=== PATIENT | female | born 1945 | race Caucasian/White ===

== ENCOUNTER 2019-06-24 15:12 | Emergency (ER) | payer MEDICARE, SELFPAY ==
[2019-06-24 15:31] VITALS: BP 152/78; PULSE 80; RESP 20; TEMP 37.3; O2SAT 96
--- NOTE | 2019-06-24 16:14 | ED.GENADULT ---
HPI - General Adult General Chief complaint: Upper Respiratory Infection Stated complaint: COUGH/CONGESTION/UNSEADY Time Seen by Provider: 06/24/19 16:15 Source: patient Mode of arrival: ambulatory Limitations: no limitations History of Present Illness HPI narrative: 74-year-old female patient presents to the [facility] with complaints of cold symptoms for the past 3 days. Patient states that she thinks she might of had the flu but states that her biggest complaint is that she has been having some dizziness. Patient states that she does have issues with her ears being clogged frequently and states when this happens she does tend to get some dizziness. Patient states she has been taking DayQuil and NyQuil for her symptoms. Patient also complains of chest congestion with cough but denies any chest pain or shortness of breath. Related Data Home Medications Medication Instructions Recorded Confirmed amlodipine 5 mg tablet 5 mg PO DAILY 04/01/19 06/24/19 aspirin 81 mg tablet,delayed 81 mg PO DAILY 04/01/19 06/24/19 release calcium carbonate 600 mg(1,500 1 tablet PO DAILY 04/01/19 06/24/19 mg)-vitamin D3 800 unit chewable tablet cholecalciferol (vitamin D3) 25 2,000 unit PO DAILY cap 04/01/19 06/24/19 mcg (1,000 unit) capsule omeprazole 20 mg capsule,delayed 20 mg PO .AC cap 04/01/19 06/24/19 release rosuvastatin 5 mg tablet 5 mg PO DAILY 04/01/19 06/24/19 [id number]-[id number] cap PO 06/24/19 [Vicks DayQuil-NyQuil] Allergies Allergy/AdvReac Type Severity Reaction Status Date / Time atorvastatin Allergy Unknown myalgias Verified 06/24/19 15:41 simvastatin Allergy Unknown myalgias Verified 06/24/19 15:41 Review of Systems Review of Systems: Narrative: CONSTITUTIONAL: Denies fever, positive body aches and chills, denies sweats. EYES: Denies visual changes, redness, or discharge. ENT: Positive rhinorrhea, congestion, denies sore throat, or otalgia. CARDIOVASCULAR: Denies chest pain, palpitations, or edema. RESPIRATORY: Positive cough or dyspnea. GASTROINTESTINAL: Denies abdominal pain, nausea, vomiting, or diarrhea. GENITOURINARY: Denies dysuria or hematuria. SKIN: Denies rash or itching. MUSCULOSKELETAL: Denies back pain, joint pain, or myalgia. NEUROLOGIC: Denies headache, numbness, or weakness. Positive dizziness PSYCHIATRIC: Denies anxiety or depression. ON LICENSE OF [facility] Past Medical History Medical History Anal wart (~2016) Condylomata yolanda of perianal skin Encounter for hepatitis C screening test for low risk patient (~03/01/17) History of mammogram (~02/28/17) Surgical History Surgical History History of cataract extraction (~03/14/16) History of colonoscopy (~2013) Family History Family History Father Family history of lung cancer Family history of elevated blood lipids Mother Family history of primary malignant neoplasm of liver Grandparent Diabetes mellitus Acute myocardial infarction Family history of malignant neoplasm of breast Family history of coronary artery disease Other Family history of cardiovascular disease Social History Social History Smoking status: Current every day smoker Alcohol intake: current Comments At the time of my signature I agree with nursing past medical history, surgical, social, and family history. There is no relevant family history pertinent to the presenting complaint. Exam Narrative: Exam Narrative: GENERAL: Well-appearing, well-nourished, and in no acute distress. HEAD: Normocephalic, atraumatic. No tenderness noted to frontal maxillary sinuses on palpation. EYES: PERRLA and EOMI. ENT: Nares with erythema and edema noted bilaterally, no rhinorrhea or epistaxis. Mucous membranes moist. Posterior pharynx with no erythem
--- NOTE | 2019-06-24 16:33 | PC.NURSE ---
Bilateral ear irrigation and use of lighted currette by Yanet Ruiz BENEFITS MANAGER with good results and pt felt much better
== END 2019-06-24 16:40 | disposition home or self-care (01) ==
PROVIDERS: Emergency Provider Nurse Practitioner Family; PCP Family Medicine
DX: H61.23 Impacted cerumen, bilateral (principal); H93.8X3 Other specified disorders of ear, bilateral; F17.200 Nicotine dependence, unspecified, uncomplicated
CPT/HCPCS: 69210; 99213; A9270; G0463

== ENCOUNTER 2020-04-26 14:25 | Outpatient (CLI) | payer MEDICARE, SELFPAY ==
--- NOTE | ~2020-04-26 | MM_ITS ---
EXAMINATION: MM screening [facility] BI w beth HISTORY: Screening mammogram TECHNIQUE: Craniocaudal and mediolateral oblique 3-D tomosynthesis images were obtained and synthetic 2-D images were generated. CAD analysis was submitted and interpreted. COMPARISON: 04/11/2019, 04/02/2018, 02/28/2017 BREAST PARENCHYMAL COMPOSITION: The breasts are almost entirely fatty. FINDINGS: Scattered benign-appearing calcifications are present. There is no evidence of suspicious m ass, calcification, or architectural distortion to suggest malignancy in either breast. There has bee n no suspicious interval change. IMPRESSION: 1. No mammographic evidence of malignancy. 2. Recommend routine screening mammography in one year. BI-RADS Category 2: Benign finding(s). Reviewed, dictated and finalized at location A. COACH
== END 2020-04-26 14:26 | disposition home or self-care (01) ==
PROVIDERS: PCP Family Medicine; Visit Provider Family Medicine
DX: Z12.31 Encounter for screening mammogram for malignant neoplasm of breast (principal)
CPT/HCPCS: 77063; 77067

== ENCOUNTER 2021-02-09 00:38 | Day surgery (SDC) | payer MEDICARE, SELFPAY ==
[2021-01-27 12:37] VITALS: BMI 32.7
[2021-02-09 08:09] VITALS: BP 152/107; PULSE 79; RESP 18; TEMP 36.2; O2SAT 98; BMI 31.8
[2021-02-09] MEDS: LACTATED RINGERS 1,000 ML 150 ML IV CONT (08:20)
--- NOTE | 2021-02-09 08:24 | WPDGICN ---
Assessment and Plan Assessment and plan (1) Family history of colonic polyps: Code(s): Z83.71 - Family history of colonic polyps Status: Acute Assessment and Plan: Patient has a family history of colon polyps for this reason. A attic surveillance colonoscopies have been performed. Plan is for neoplasia screening today. GI Consult Note Consult date/time: 02/09/21 08:24 HPI: Linnea Goins is a 76 year old female Presents for screening colonoscopy. Patient has a family history of colon polyps. Patient's last exam 2013 was unremarkable. Patient reports that her current weight appetite bowel movements are normal. She denies abdominal pain. She has had no bleeding. She presents today for surveillance neoplasia screening. Review of Systems Review of Systems: All systems reviewed & are unremarkable except as noted in HPI and below PMFSH Past Medical History Medical History (Updated 02/09/21 @ 08:25 by Fritz Peoples MD) Anal wart (~2016) Condylomata yolanda of perianal skin Encounter for hepatitis C screening test for low risk patient (~03/01/17) History of mammogram (~02/28/17) Surgical History Surgical History (Reviewed 12/20/20 @ 13:41 by Vanessa Vega [facility]) History of cataract extraction (~03/14/16) History of colonoscopy (~2013) Family History Family History (Reviewed 12/20/20 @ 13:41 by Vanessa Vega [facility]) Father Family history of lung cancer Family history of elevated blood lipids Mother Family history of primary malignant neoplasm of liver Grandparent Diabetes mellitus Acute myocardial infarction Family history of malignant neoplasm of breast Family history of coronary artery disease Other Family history of cardiovascular disease Social History Social History (Reviewed 12/20/20 @ 13:41 by Vanessa Vega [facility]) Smoking packs per day: 1.5 Smoking cigarettes per day: 30.0 Years smoked: 40 Smoking pack-years: 60.00 Smoking status: Current every day smoker Tobacco type: cigarettes Alcohol intake: current Drinks per week: 10 Living arrangements: with family Spiritual care concerns: No Meds Home Medications and Allergies Home Medications Medication Instructions Recorded Confirmed Type aspirin 81 mg tablet,delayed 81 mg PO DAILY 04/01/19 01/27/21 History release calcium carbonate 600 mg(1,500 1 tablet PO DAILY 04/01/19 01/27/21 History mg)-vitamin D3 800 unit chewable tablet cholecalciferol (vitamin D3) 25 2,000 unit PO DAILY cap 04/01/19 01/27/21 History mcg (1,000 unit) capsule meloxicam 15 mg tablet See Rx Instructions .ROUTE 11/22/20 01/27/21 Rx .COMPLEX #90 tablet omeprazole 20 mg capsule,delayed See Rx Instructions .ROUTE 11/22/20 01/27/21 Rx release .COMPLEX #90 cap amlodipine 5 mg tablet See Rx Instructions .ROUTE 12/13/20 01/27/21 Rx .COMPLEX #90 tablet rosuvastatin 5 mg tablet See Rx Instructions .ROUTE 12/13/20 01/27/21 Rx .COMPLEX #90 tablet Allergies Allergy/AdvReac Type Severity Reaction Status Date / Time atorvastatin Allergy Unknown myalgias Verified 02/09/21 08:08 simvastatin Allergy Unknown myalgias Verified 02/09/21 08:08 Vital Signs Vital Signs - 24 hr 02/09/21 08:09 Temperature 97.2 F L Pulse Rate 79 Respiratory Rate 18 Blood Pressure 152/107 H Pulse Oximetry 98 Exam Narrative: Physical exam reveals patient to be alert. Vital signs stable. HEENT exam is unremarkable. Patient is anicteric. Lungs are clear to auscultation and percussion. Heart is without murmur or extra sounds. Abdominal exam bowel sounds are present soft nontender with no organomegaly. Digital external rectal exam is normal.
--- NOTE | 2021-02-09 08:36 | WPDANESEPPF ---
Anes - Initial Pre Proc Eval Procedure: Operation Date: 02/09/21 09:00 Proposed Procedures p Screening Colonoscopy - Fritz Peoples MD Date/Time: 02/09/21 08:36 Surgeon: Fritz Peoples MD Pre Op Diagnosis: family hx of colon polyps Patient Data Age: 76 Gender: F Height: 1.68 m Weight: 89.7 kg Last Vital Signs Temp 97.2 F L 02/09/21 08:09 Pulse 79 02/09/21 08:09 Resp 18 02/09/21 08:09 BP 152/107 H 02/09/21 08:09 Pulse Ox 98 02/09/21 08:09 Allergies Allergy/AdvReac Type Severity Reaction Status Date / Time atorvastatin Allergy Unknown myalgias Verified 02/09/21 08:08 simvastatin Allergy Unknown myalgias Verified 02/09/21 08:08 Home Medications Medication Instructions Recorded Confirmed Type aspirin 81 mg tablet,delayed 81 mg PO DAILY 04/01/19 01/27/21 History release calcium carbonate 600 mg(1,500 1 tablet PO DAILY 04/01/19 01/27/21 History mg)-vitamin D3 800 unit chewable tablet cholecalciferol (vitamin D3) 25 2,000 unit PO DAILY cap 04/01/19 01/27/21 History mcg (1,000 unit) capsule meloxicam 15 mg tablet See Rx Instructions .ROUTE 11/22/20 01/27/21 Rx .COMPLEX #90 tablet omeprazole 20 mg capsule,delayed See Rx Instructions .ROUTE 11/22/20 01/27/21 Rx release .COMPLEX #90 cap amlodipine 5 mg tablet See Rx Instructions .ROUTE 12/13/20 01/27/21 Rx .COMPLEX #90 tablet rosuvastatin 5 mg tablet See Rx Instructions .ROUTE 12/13/20 01/27/21 Rx .COMPLEX #90 tablet Patient hx anesthesia problems: none Family hx anesthesia problems: none Results Review: All pre-operative results and documents have been reviewed as part of the pre-operative evaluation. [facility] Past Medical History Medical History (Updated 02/09/21 @ 08:25 by Fritz Peoples MD) Anal wart (~2016) Condylomata yolanda of perianal skin Encounter for hepatitis C screening test for low risk patient (~03/01/17) History of mammogram (~02/28/17) Surgical History Surgical History History of cataract extraction (~03/14/16) History of colonoscopy (~2013) Family History Family History Father Family history of lung cancer Family history of elevated blood lipids Mother Family history of primary malignant neoplasm of liver Grandparent Diabetes mellitus Acute myocardial infarction Family history of malignant neoplasm of breast Family history of coronary artery disease Other Family history of cardiovascular disease Social History Social History Smoking packs per day: 1.5 Smoking cigarettes per day: 30.0 Years smoked: 40 Smoking pack-years: 60.00 Smoking status: Current every day smoker Tobacco type: cigarettes Alcohol intake: current Drinks per week: 10 Living arrangements: with family Spiritual care concerns: No Anes - Eval Final PreProcedure Day of Procedure 02/09/21 08:36 Patient weight: obese Heart: regular rate and rhythm Lungs: clear to auscultation Airway: Mallampati scale class II Neurological: alert and oriented Last oral intake: >/= 8 hours ASA classification: III Emergent: no Anesthetic plan: proceed Anesthesia type and monitoring: general GIVS and standard monitoring Results Review: All pre-operative results and documents have been reviewed as part of the pre-operative evaluation. Informed Consent: The patient's anesthetic plan and its attendant risks and benefits were discussed with the patient/family/POA. Questions were solicited and answers provided to the satisfaction of the patient/family/POA.
[2021-02-09 09:13] VITALS: BP 129/76; PULSE 68; RESP 18; O2SAT 98
[2021-02-09 09:23] VITALS: BP 126/77; PULSE 69; RESP 15; O2SAT 96
[2021-02-09 09:33] VITALS: BP 137/85; PULSE 69; RESP 14; O2SAT 97
== END 2021-02-09 09:40 | disposition home or self-care (01) ==
PROVIDERS: PCP Family Medicine; Visit Provider Internal Medicine Gastroenterology
PROC: 0DJD8ZZ Inspection of Lower Intestinal Tract, Via Natural or Artificial Opening Endoscopic (ICD-10-PCS; CPT 45378; principal; 2021-02-09 09:00)
DX: Z12.11 Encounter for screening for malignant neoplasm of colon (principal); K64.8 Other hemorrhoids; K57.30 Diverticulosis of large intestine without perforation or abscess without bleeding; Z83.71 Family history of colonic polyps; F17.210 Nicotine dependence, cigarettes, uncomplicated
CPT/HCPCS: G0105; J2704; J7120

== ENCOUNTER 2021-05-18 13:57 | Outpatient (CLI) | payer MEDICARE, SELFPAY ==
--- NOTE | ~2021-05-18 | MM_ITS ---
EXAMINATION: MM screening [facility] BI w beth HISTORY: Screening mammogram TECHNIQUE: Craniocaudal and mediolateral oblique 3-D tomosynthesis images were obtained and synthetic 2-D images were generated. CAD analysis was submitted and interpreted. COMPARISON: 04/26/2020, 04/09/2019, 04/02/2018 BREAST PARENCHYMAL COMPOSITION: There are scattered areas of fibroglandular density. FINDINGS: Scattered benign-appearing calcifications are present. There is no evidence of suspicious m ass, calcification, or architectural distortion to suggest malignancy in either breast. There has bee n no suspicious interval change. IMPRESSION: 1. No mammographic evidence of malignancy. 2. Recommend routine screening mammography in one year. BI-RADS Category 2: Benign finding(s). Reviewed, dictated and finalized at location A. [facility]
== END 2021-05-18 13:58 | disposition home or self-care (01) ==
LOC: ANHIMG 13:58
PROVIDERS: PCP Family Medicine; Visit Provider Family Medicine
DX: Z12.31 Encounter for screening mammogram for malignant neoplasm of breast (principal)
CPT/HCPCS: 77063; 77067

== ENCOUNTER 2022-03-07 13:54 | Outpatient (CLI) | payer MEDICARE, SELFPAY ==
--- NOTE | ~2022-03-07 | DEXA_ITS ---
Bone Density Report Name: WILVER CARREON Age: 77 Sex: Female Ethnicity: White Date of : 1945 Indication: postmenopausal; screening for osteoporosis; height loss; rheumatoid arthritis; Referring Provider: KEVIN BAEZA Study: Bone densitometry was performed. Exam Date: March 07, 2022 Accession number: [id number] Bone Density: Region BMD T-score Z-score Classification AP Spine(L1-L4) 1.210 1.5 3.9 Normal Femoral Neck (Left) 0.928 0.7 2.8 Normal Total Hip (Left) 1.014 0.6 2.4 Normal Femoral Neck (Right) 0.901 0.5 2.6 Normal Total Hip (Right) 1.025 0.7 2.5 Normal Total Hip Mean 1.019 0.7 2.5 Normal World Health Organization criteria for BMD impression classify patients as: Normal (T-score at or above -1.0), Osteopenia (T-score between -1.0 and -2.5), or Osteoporosis (T-score at or below -2.5). 10-year Fracture Risk: FRAX not reported because: All T-scores for Spine Total, Hip Total, Femoral Neck at or above -1.0 Clinical Information Provided by Patient: Smokes Has rheumatoid arthritis Has used the following medications: Vitamin D, Calcium Patient maximum height was 66.5 Menopause Age: 47 No regular weight bearing exercise Drinks caffeinated beverages Onset of menses at age 14 Number of children 2 Impression: The patient has normal bone mass. The patient has risk factors, including: smoking. Discussion: LOW RISK OF FRACTURE; BONE DENSITY IS WELL ABOVE THE MINIMUM DESIRABLE LEVEL AND ABOVE AVERAGE FOR AGE AND SEX AT ALL SKELETAL SITES TESTED. This person's bone density is above expected limits for age and sex. This is rarely clinically significant, but should be pursued if there are significant musculoskeletal complaints. The patient should follow a healthful lifestyle (good nutrition with adequate calcium and vitamin D, and appropriate weight-bearing exercise). Follow-Up: Consider repeating this study in 5 years or sooner if there is some new clinical indication. Reported by: [facility] on 03/07/2022 2:25:00 PM. Reviewed, dictated and finalized at location A. NAKUL
== END 2022-03-07 13:55 | disposition home or self-care (01) ==
PROVIDERS: PCP Family Medicine; Visit Provider Family Medicine
DX: Z78.0 Asymptomatic menopausal state (principal)
CPT/HCPCS: 77080

== ENCOUNTER 2022-07-03 18:48 | Emergency (ER) | payer MEDICARE, SELFPAY ==
--- NOTE | ~2022-07-03 | XR_ITS ---
EXAMINATION: XR knee RT 3V DATE: 07/03/2022 21:29 INDICATION: Right knee pain and swelling. TECHNIQUE: 3 views of right knee were obtained. COMPARISON: Right knee radiographs 01/17/2017 FINDINGS: Bone alignment is normal. No fracture. There is moderate osteoarthritis of medial compartme nt and mild osteoarthritis of lateral and patellofemoral compartments. No knee joint effusion. IMPRESSION: 1. Moderate right knee osteoarthritis. Reviewed, dictated and finalized at location A. 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
[2022-07-03 19:34] VITALS: BP 125/67; PULSE 82; RESP 16; TEMP 37.1; O2SAT 95
--- NOTE | 2022-07-03 23:59 | ED.GENADULT ---
HPI - General Adult General Chief complaint: Extremity Injury, Lower Stated complaint: right knee pain Time Seen by Provider: 07/03/22 23:50 History of Present Illness HPI narrative: Patient is a 77-year-old female who presents the emergency department with chief complaint of right knee pain. Patient reports that many years ago she injured her right knee and reports over the last week she has been having pain worse with ambulation reports it is worse whenever she tries to extend her leg. Patient reports no new trauma reports no redness reports that she thinks it may be a little swollen. Patient reports that she has not seen orthopedics about it and has had an MRI several years ago. Related Data Home Medications Medication Instructions Recorded Confirmed aspirin 81 mg tablet,delayed 81 mg PO DAILY 04/01/19 12/20/21 release calcium carbonate 600 mg-vitamin 1 tablet PO DAILY 04/01/19 12/20/21 D3 20 mcg (800 unit) chewable tablet (Caltrate 600 plus D) cholecalciferol (vitamin D3) 25 2,000 unit PO DAILY 04/01/19 12/20/21 mcg (1,000 unit) capsule Allergies Allergy/AdvReac Type Severity Reaction Status Date / Time atorvastatin Allergy Unknown myalgias Verified 04/25/22 13:02 simvastatin Allergy Unknown myalgias Verified 04/25/22 13:02 Review of Systems Review of Systems: A 10 system review of systems was completed on the patient and is negative except for what is stated in the HPI. Nursing and ancillary documentation was reviewed. [facility] Past Medical History Medical History (Updated 07/04/22 @ 00:02 by Atilio Garcia MD) Anal wart (~2016) Condylomata yolanda of perianal skin Encounter for hepatitis C screening test for low risk patient (~03/01/17) History of mammogram (~02/28/17) Surgical History Surgical History History of cataract extraction (~03/14/16) History of colonoscopy (~2013) Family History Family History Father Family history of lung cancer Family history of elevated blood lipids Mother Family history of primary malignant neoplasm of liver Grandparent Diabetes mellitus Acute myocardial infarction Family history of malignant neoplasm of breast Family history of coronary artery disease Other Family history of cardiovascular disease Social History Social History Smoking packs per day: 1.5 Smoking cigarettes per day: 30.0 Years smoked: 40 Smoking pack-years: 60.00 Smoking status: Current every day smoker Tobacco type: cigarettes Alcohol intake: current Drinks per week: 10 Lack of Transportation: No Lack of Food: Sometimes True Current Housing: I Have Housing Concerned About Future Housing: No Difficulty Paying Gas/Electric Bills: No Difficulty Paying for Meds: No Currently Unemployed: No Education: High School Diploma/GED Difficulty w/ Childcare or Family Care: No Living arrangements: with family Spiritual care concerns: No Exam Narrative: GENERAL: Well-appearing, well-nourished, and in no acute distress. HEAD: Normocephalic, atraumatic. EYES: PERRLA and EOMI. ENT: Nares clear, no rhinorrhea or epistaxis. Mucous membranes moist. NECK: Supple. CHEST: Clear to auscultation. No respiratory distress. HEART: Regular rate and rhythm. No murmur heard. Normal peripheral pulses. ABDOMEN: Soft, nontender, nondistended, normal active bowel sounds. EXTREMITIES: Normal range of motion of all extremities except for right lower extremity. There is limited range of motion of the right knee patient has difficulty extending. There is tenderness with range of motion and lateral movement. There is no appreciable effusion no erythema no fluctuance.. No edema. SKIN: Warm, dry, no rash. NEURO: No focal deficits. Alert and oriented x3. PSYCH: Normal mood and a
[2022-07-04] MEDS: DICLOFENAC SOD 25 MG TABLET.EC 50 MG PO (00:20)
== END 2022-07-04 00:24 | disposition home or self-care (01) ==
PROVIDERS: Emergency Provider Emergency Medicine; PCP Family Medicine
DX: M23.91 Unspecified internal derangement of right knee (principal); F17.210 Nicotine dependence, cigarettes, uncomplicated; Z79.82 Long term (current) use of aspirin; Z98.49 Cataract extraction status, unspecified eye
CPT/HCPCS: 73562; 99283; A9270

== ENCOUNTER 2022-08-31 14:45 | Outpatient (CLI) | payer MEDICARE, SELFPAY ==
--- NOTE | ~2022-08-31 | MM_ITS ---
EXAMINATION: MM screening [facility] BI w beth HISTORY: Screening mammogram TECHNIQUE: Craniocaudal and mediolateral oblique 3-D tomosynthesis images were obtained and synthetic 2-D images were generated. CAD analysis was submitted and interpreted. COMPARISON: 05/18/2021, 04/26/2020, 04/09/2019 BREAST PARENCHYMAL COMPOSITION: There are scattered areas of fibroglandular density. FINDINGS: Scattered benign-appearing calcifications are present. No suspicious mass, calcification, o r architectural distortion are identified in either breast to suggest malignancy. There has been no s uspicious interval change. IMPRESSION: 1. No mammographic evidence of malignancy. 2. Recommend routine screening mammography in one year. BI-RADS Category 2: Benign finding(s). Reviewed, dictated and finalized at location A.
== END 2022-08-31 14:46 | disposition home or self-care (01) ==
PROVIDERS: PCP Family Medicine; Visit Provider Family Medicine
DX: Z12.31 Encounter for screening mammogram for malignant neoplasm of breast (principal)
CPT/HCPCS: 77063; 77067

== ENCOUNTER 2022-11-29 13:05 | Emergency (ER) | payer MEDICARE, SELFPAY ==
--- NOTE | 2022-11-29 13:09 | ED.EYEPROB ---
HPI - Eye Problem General Chief complaint: Skin/Abscess/Foreign Body Stated complaint: EYE SWELLING/BUMPS Time Seen by Provider: 11/29/22 13:09 Source: patient and RN notes reviewed History of Present Illness HPI Narrative: Patient is a 77-year-old female who presents to urgent care with complaints of bumps under the skin and irritation of the left eye. Patient states that it started over the weekend with a bump under the left eye causing itchiness and some redness/swelling. Patient states she now has a bump under the skin above her upper lip, the left cheek and swollen left lymph node. Patient states that she has also had a sore throat. Denies any history of skin infection. Denies any fever, nausea or vomiting. Patient took Benadryl for her symptoms. No other acute complaints. No acute distress noted. Patient aware of the plan of care. Some parts of this dictation were generated by voice recognition software and may contain typographical and/or grammatical inaccuracies. Related Data Home Medications Medication Instructions Recorded Confirmed aspirin 81 mg tablet,delayed 81 mg PO DAILY 04/01/19 11/29/22 release calcium carbonate 600 mg-vitamin 1 tablet PO DAILY 04/01/19 11/29/22 D3 20 mcg (800 unit) chewable tablet (Caltrate 600 plus D) cholecalciferol (vitamin D3) 25 2,000 unit PO DAILY 04/01/19 11/29/22 mcg (1,000 unit) capsule Allergies Allergy/AdvReac Type Severity Reaction Status Date / Time atorvastatin Allergy Unknown myalgias Verified 11/29/22 13:12 simvastatin Allergy Unknown myalgias Verified 11/29/22 13:12 Review of Systems Review of Systems: CONSTITUTIONAL: Denies fever, chills, or sweats. EYES: Denies visual changes, redness, or discharge. ENT: Denies rhinorrhea, congestion, sore throat, or otalgia. Reports of left lymph node swelling CARDIOVASCULAR: Denies chest pain, palpitations, or edema. RESPIRATORY: Denies cough or dyspnea. GASTROINTESTINAL: Denies abdominal pain, nausea, vomiting, or diarrhea. GENITOURINARY: Denies dysuria or hematuria. SKIN: Reports of bones under the skin, over the upper lip, left cheek and below the left eye MUSCULOSKELETAL: Denies back pain, joint pain, or myalgia. NEUROLOGIC: Denies headache, numbness, or weakness. All other systems reviewed are negative, except as documented in HPI. [facility] Past Medical History Medical History (Updated 11/29/22 @ 13:31 by CLARI Cunningham) Anal wart (~2016) Condylomata yolanda of perianal skin Effusion of knee joint Encounter for hepatitis C screening test for low risk patient (~03/01/17) History of mammogram (~02/28/17) Right knee DJD Right knee pain Surgical History Surgical History History of cataract extraction (~03/14/16) History of colonoscopy (~2013) Family History Family History Father Family history of lung cancer Family history of elevated blood lipids Mother Family history of primary malignant neoplasm of liver Grandparent Diabetes mellitus Acute myocardial infarction Family history of malignant neoplasm of breast Family history of coronary artery disease Other Family history of cardiovascular disease Social History Social History (Updated 07/11/22 @ 11:14 by Elena Chris) Social History: Caffeine-coffee daily Smoking packs per day: 1.5 Smoking cigarettes per day: 30.0 Years smoked: 40 Smoking pack-years: 60.00 Smoking status: Current every day smoker Tobacco type: cigarettes Alcohol intake: current Drinks per week: 2 Alcohol use details: wine Substance use: never Lack of Transportation: No Lack of Food: Sometimes True Current Housing: I Have Housing Concerned About Future Housing: No Difficulty Paying Gas/Electric Bills: No Difficulty Paying for Meds: No Currently Unemployed: No Education: High School Diploma/GED Difficulty w/ Childcare
[2022-11-29 13:15] VITALS: BP 151/78; PULSE 79; RESP 16; TEMP 36.6; O2SAT 98
== END 2022-11-29 13:34 | disposition home or self-care (01) ==
PROVIDERS: Emergency Provider Nurse Practitioner Family; PCP Family Medicine
DX: L03.211 Cellulitis of face (principal); F17.210 Nicotine dependence, cigarettes, uncomplicated; M17.11 Unilateral primary osteoarthritis, right knee; Z79.82 Long term (current) use of aspirin
CPT/HCPCS: 99213; G0463

== ENCOUNTER 2023-09-03 13:28 | Outpatient (CLI) | payer MEDICARE, SELFPAY ==
--- NOTE | ~2023-09-03 | CT_ITS ---
EXAMINATION:CT lung screening DATE: 09/03/2023 13:52 INDICATION: Personal history of nicotine dependence. Current smoker with 90 pack year history. TECHNIQUE: Computed tomography (CT) of the chest was performed without intravenous contrast. Automate d exposure control and iterative reconstruction technique were employed. The dose-length product (DLP ) was 163.94 mGy-cm. COMPARISON: None. FINDINGS: There is mild emphysema. There is peripheral septal thickening in the lungs associated with mild groundglass opacities. There are a few nodules in the lungs measuring up to 4 mm. Calcified pul monary nodules and calcified hilar and mediastinal lymph nodes are consistent with old granulomatous disease. No pleural effusion. The heart size is normal. There are coronary artery calcifications. No pericardial effusion. Aortic atherosclerosis is noted. There is mild thoracic spondylosis. IMPRESSION: 1. Lung-RADS category 2: Benign appearance or behavior. Continue annual screening with noncontrast lo w-dose chest CT in 12 months. Reviewed, dictated and finalized at location E. IMPRESSION: 1. Lung-RADS category 2: Benign appearance or behavior. Continue annual screeni ng with noncontrast low-dose chest CT in 12 months.
== END 2023-09-03 13:29 | disposition home or self-care (01) ==
PROVIDERS: PCP Family Medicine; Visit Provider Family Medicine
DX: Z12.2 Encounter for screening for malignant neoplasm of respiratory organs (principal); Z87.891 Personal history of nicotine dependence
CPT/HCPCS: 71271

== ENCOUNTER 2024-01-09 14:29 | Outpatient (CLI) | payer MEDICARE, SELFPAY ==
--- NOTE | 2024-01-09 14:33 | ECHO_ITS ---
Patient Info Name: Linnea Goins Age: 79 years : 1945 Gender: Female Ht: 66 in Wt: 192 lbs BSA: 2.04 m2 HR: 82 bpm BP: 151 / 97 mmHg Heart Rhythm: Sinus Rhythm Technical Quality: Fair Exam Date: 01/09/2024 2:42 PM Exam Location: Echo Lab Patient Status: Outpatient Admit Date: 01/09/2024 Staff Ordering Physician: Nhung Villavicencio DO E Commerce Specialist: Tayler Cedeno RDCS Attending Provider: Nhung Villavicencio DO Referring Physician: Saud [place]; Exam Type: CA echo dop color flow w con Study Info Indications R01.1 - Cardiac murmur, unspecified Complete two-dimensional, color flow and Doppler transthoracic echocardiogram is performed with contrast to opacify the left ventricle and to improve the deliniation of the left ventricle endocardial borders. Contrast/Agitated Saline Contrast/Ag. Saline: Definity Amount: 2.00 ml Administered By: Tayler Cedeno RDCS New IV Access: Right Site Condition: IV removed Summary 1. Technically somewhat challenging echo, definity contrast utilized to improve visualization. 2. Moderate concentric left ventricular hypertrophy with hyperdynamic systolic function. 3. Grade 1 diastolic noncompliance. 4. Sclerotic aortic valve with well maintained leaflet excursion. 5. Mitral annular calcification. 6. Dilated left atrium. Left Ventricle Left ventricular chamber dimension is normal. Left ventricular systolic function is hyperdynamic, estimated at >70%. There is moderate concentric increased left ventricular wall thickness. The left ventricular diastolic function is grade I diastolic dysfunction. Right Ventricle Right ventricular chamber dimension is normal. Left Atria Left atrial chamber dimension is moderately enlarged. Right Atria Right atrial chamber dimension is normal. Aortic Valve The aortic valve is trileaflet. There is moderate aortic valve sclerosis. There is no aortic valve stenosis. Pulmonic Valve The pulmonic valve is not well visualized. Mitral Valve The mitral valve has normal leaflets. The mitral valve annulus is moderately calcified. Tricuspid Valve The tricuspid valve leaflets are normal. Pericardium/Pleural The pericardium appears normal. Aorta The aortic root size at the sinus of Valsalva is normal. Left Ventricular Outflow Tract Name Value Normal LVOT 2D LVOT Diameter 1.97 cm LVOT Doppler LVOT Peak Gradient 6 mmHg LVOT Mean Gradient 4 mmHg LVOT VTI 24.89 cm LVOT VTI/AV VTI Ratio 0.73 LVOT Stroke Volume 75.91 ml LVOT CO 5.68 l/min LVOT CI 2.78 L/min/m2 Pulmonic Valve Name Value Normal RVOT Doppler RVOT Peak Gradient 3 mmHg PV Doppler
[2024-01-09] MEDS: PERFLUTREN LIPID MICROSPHERES 1.5 ML VIAL DILUTED TO 10 ML TOTAL VOLUME (15:00)
--- NOTE | 2024-01-09 15:54 | IVDEFINITY ---
Prior to administration of IV Definity the patient was educated on the risks and benefits of the imaging enhancing agent including potential adverse side effects. The patient verbalized understanding. Allergies were verified. No exclusion criteria were identified and at least one of the following inclusion criteria were met: 1) physician request, 2) patient technically difficult to image (per the [place] [employer]chocardi[employer] guidelines of two or more segments not discernable within the apical view), or 3) questionable left ventricular function. ?
== END 2024-01-09 14:30 | disposition home or self-care (01) ==
LOC: ANHCARD 14:32
PROVIDERS: PCP Family Medicine; Visit Provider Family Medicine
DX: R01.1 Cardiac murmur, unspecified (principal); I51.89 Other ill-defined heart diseases; I34.81 Nonrheumatic mitral (valve) annulus calcification
CPT/HCPCS: C8929; Q9957

== ENCOUNTER 2024-08-18 14:53 | Outpatient (CLI) | payer MEDICARE, SELFPAY ==
--- NOTE | ~2024-08-18 | XR_ITS ---
Left Hand Technique: PA and lateral views were obtained. Clinical History: Swelling Findings: No acute fracture or dislocation is seen. Osseous alignment is anatomic. There is severe de generative change of the first CMC joint. There are moderate to advanced degenerative changes through out the interphalangeal joints of the fingers otherwise.. Soft tissues are unremarkable. Impression: Polyarticular osteoarthritis, as detailed above. Reviewed, dictated and finalized at location M. Impression: Polyarticular osteoarthritis, as detailed above.
== END 2024-08-18 14:54 | disposition home or self-care (01) ==
LOC: GOSHIMG 14:54
PROVIDERS: PCP Family Medicine; Visit Provider Nurse Practitioner
DX: R22.32 Localized swelling, mass and lump, left upper limb (principal); M19.042 Primary osteoarthritis, left hand
CPT/HCPCS: 73120

== ENCOUNTER 2024-09-03 14:46 | Outpatient (CLI) | payer MEDICARE, SELFPAY ==
--- NOTE | ~2024-09-03 | CT_ITS ---
CLINICAL INDICATION: Personal history of nicotine dependence COMPARISON: 09/03/2023. TECHNIQUE: Multiple contiguous axial images of the chest was performed without the administration of intravenous contrast. This CT examination was performed utilizing dose reduction techniques. DLP: 109 mGy-cm FINDINGS/OBSERVATIONS: LUN mm nodule within the left upper lobe (axial series, image 48), increased from 4.4 mm on the previou s study. Calcified nodules within the right hemithorax, consistent with prior granulomatous disease. HEART: The heart is of normal size, without pericardial effusion. MEDIASTINUM: No pathologically enlarged or morphologically suspicious lymph nodes are identified within the medias tinum, bilateral axilla, within the soft tissues of the anterior chest wall. Calcified lymph nodes ar e present, consistent with prior granulomatous disease. SOFT TISSUES OF THE CHEST: Unremarkable. BONES OF THE CHEST: No acute fracture. No lytic or blastic lesions are identified. UPPER ABDOMEN: The bilateral adrenal glands are unremarkable. IMPRESSION: Interval development of a 6 mm nodule within the left upper lobe for which follow-up as per Fleischpriscilla r guidelines is recommended which recommends a CT examination at 3-6 months with follow-up at 18-24 m [facility]. Lung-RADS category 3: Probably benign. Further evaluation is recommended with noncontrast low-dose ch est CT in 3-6 months. Reviewed, dictated and finalized at location A. IMPRESSION: Interval development of a 6 mm nodule within the left upper lobe for which foll ow-up as per Fleischner guidelines is recommended which recommends a CT examina tion at 3-6 months with follow-up at 18-24 months. Lung-RADS category 3: Probably benign. Further evaluation is recommended with n oncontrast low-dose chest CT in 3-6 months.
== END 2024-09-03 14:47 | disposition home or self-care (01) ==
PROVIDERS: PCP Family Medicine; Visit Provider Nurse Practitioner
DX: Z12.2 Encounter for screening for malignant neoplasm of respiratory organs (principal); R91.1 Solitary pulmonary nodule; Z87.891 Personal history of nicotine dependence
CPT/HCPCS: 71271

== ENCOUNTER 2024-09-25 12:42 | Outpatient (CLI) | payer MEDICARE, SELFPAY ==
--- NOTE | ~2024-09-25 | MM_ITS ---
EXAMINATION: MM screening alena BI w beth HISTORY: Screening TECHNIQUE: Craniocaudal and mediolateral oblique 3-D tomosynthesis images were obtained and synthetic 2-D images were generated. CAD analysis was submitted and interpreted. COMPARISON: Comparison to multiple prior studies sequentially, with oldest reviewed study dated 09/2021. BREAST PARENCHYMAL COMPOSITION: Not dense: There are scattered areas of fibroglandular density. FINDINGS: There is no evidence of suspicious mass, calcification, or architectural distortion to sugg est malignancy in either breast. There has been no suspicious interval change. IMPRESSION: 1. No mammographic evidence of malignancy. 2. Recommend routine screening mammography in one year. BI-RADS Category 1: Negative Reviewed, dictated and finalized at location A.
--- OUTSIDE RECORDS SUMMARY | 2024-09-25 12:45 | XMS_ITS | Clinical Summary ---
Author Organization [facility] Address Count includes the [facility] [place] [address] Care Team Providers Care Metallurgical Specialist Name Role Phone Unavailable Primary Care Provider Unavailabl e Social History Tobacco Use Types Packs/Day Years Used Date Smoking Tobacco: Never Assessed Comments Unknown Sex and Gender Information Value Date Recorded Sex Assigned at Not on file Legal Sex Female 7:17 PM CDT Gender Identity Not on file Sexual Orientation Not on file Plan of Treatment Health Maintenance Due Date Last Done Comments Hepatitis C 1963 DTaP, Tdap and Td Vaccines ( 1 - Tdap) 1966 Pneumococcal Vaccine: 50+ Ye ars (1 of 1 - PCV) 1997 Zoster Vaccines (1 of 2) 1997 Dexa Scan (General) 01/10/2012 RSV Immunization or 60+ Years (1 - 1-dose 75+ series) 2022 COVID-19 Vaccine (2023-2 5 season) 2024 Meningococcal B Vaccine Aged Out No l onger eligible based on patient's age to complete this topic Meningococcal Vaccine Aged Out No nubia tiara eligible based on patient's age to complete this topic RSV Immunizations Under 20 Months Aged Out No longer eligible based on patient's age to complete this topic
== END 2024-09-25 12:43 | disposition home or self-care (01) ==
LOC: ANHIMG 12:43
PROVIDERS: PCP Family Medicine; Visit Provider Nurse Practitioner
DX: Z12.31 Encounter for screening mammogram for malignant neoplasm of breast (principal)
CPT/HCPCS: 77063; 77067

== ENCOUNTER 2024-12-04 13:31 | Outpatient (CLI) | payer MEDICARE, SELFPAY ==
--- NOTE | ~2024-12-04 | CT_ITS ---
CT Scan of the Chest without Contrast: Clinical Indication: Pulmonary nodule Technique: Contiguous sections were acquired throughout the chest without intravenous contrast. Dose reduction technique was used on this scan by utilizing automated exposure control and iterative recon struction technique. The dose-length product (DLP) was 159.71 mGy-cm. COMPARISON: 09/03/2024 Findings: There is no evidence of any significant mediastinal, hilar or axillary lymphadenopathy. Small calcifi ed lymph nodes are present. There are extensive atherosclerotic calcifications of the aorta. There ar e mild coronary artery calcifications. There is no evidence of pleural or pericardial effusion. Stable 5 mm upper lobe pulmonary nodule. There are peripheral chronic interstitial changes in the upp er lobes bilaterally. Calcified granulomas are present. Images through the upper abdomen reveal no abnormalities. Impression: Stable 5 mm left upper lobe pulmonary nodule. 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 Evidence of prior granulomatous disease. Reviewed, dictated and finalized at [facility]. Impression: Stable 5 mm left upper lobe pulmonary nodule. 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 Evidence of prior granulomatous disease.
--- OUTSIDE RECORDS SUMMARY | 2024-12-04 13:45 | XMS_ITS | Clinical Summary ---
Author Organization [facility] Address [facility] [place] [address] Care Team Providers Care Web Art Director Name Role Phone Unavailable Primary Care Provider [...]
== END 2024-12-04 13:32 | disposition home or self-care (01) ==
PROVIDERS: PCP Family Medicine; Visit Provider Nurse Practitioner
DX: R91.1 Solitary pulmonary nodule (principal); J84.9 Interstitial pulmonary disease, unspecified
CPT/HCPCS: 71250

== ENCOUNTER 2024-12-05 12:37 | Outpatient (CLI) | payer MEDICARE, SELFPAY ==
--- OUTSIDE RECORDS SUMMARY | 2024-12-05 12:40 | XMS_ITS | Clinical Summary ---
Author Organization [facility] Address [facility] [place] [address] Care Team Providers Care Chief Merchandising Officer Name Role Phone Unavailable Primary Care Provider [...]
--- NOTE | 2024-12-05 12:51 | ECHO_ITS ---
Patient Info Name: Linnea Goins Age: 79 years : 1945 Gender: Female Ht: 66 in Wt: 204 lbs BSA: 2.11 m2 HR: 81 bpm BP: 172 / 97 mmHg Heart Rhythm: Sinus Rhythm Technical Quality: Fair Exam Date: 12/05/2024 12:58 PM Patient Status: O Admit Date: 12/05/2024 Exam Type: CA echo doppler color flow Complete two-dimensional, color flow and Doppler transthoracic echocardiogram is performed. Organizational Effectiveness Director: Tayler Cedeno Attending Provider: Joe Chambers DO Summary 1. Complete two-dimensional, color flow and Doppler transthoracic echocardiogram is performed. 2. Left ventricular chamber dimension is normal. 3. Left ventricular systolic function is normal, estimated at 65-70. 4. Ventricular septum is sigmoid shaped. No resting LVOT obstruction. 5. The left ventricular diastolic function is grade I diastolic dysfunction. 6. Left atrial chamber dimension is moderately enlarged. 7. There is moderate aortic valve sclerosis. 8. There is mild aortic valve stenosis with a peak velocity of 305 cm/s, mean gradient of 17 mmHg, and aortic valve area of 1.8 cm2. 9. The mitral valve has a moderately calcified annulus. 10. No pulmonary hypertension, estimated pulmonary arterial systolic pressure is 33 mmHg. Left Ventricle Left ventricular chamber dimension is normal. Left ventricular systolic function is normal, estimated at 65-70. The left ventricular diastolic function is grade I diastolic dysfunction. Ventricular septum is sigmoid shaped. No resting LVOT obstruction. Right Ventricle Right ventricular chamber dimension is normal. Right ventricular systolic function is normal and with normal TAPSE 2.1 cm. Left Atria Left atrial chamber dimension is moderately enlarged. Right Atria Right atrial chamber dimension is normal. Aortic Valve The aortic valve is trileaflet. There is moderate aortic valve sclerosis. There is mild aortic valve stenosis with a peak velocity of 305 cm/s, mean gradient of 17 mmHg, and aortic valve area of 1.8 cm2. There is no aortic valve regurgitation. Pulmonic Valve There is no pulmonic regurgitation. Mitral Valve The mitral valve has a moderately calcified annulus. There is no mitral valve stenosis. There is no mitral valve regurgitation. Tricuspid Valve There is no tricuspid valve regurgitation. No pulmonary hypertension, estimated pulmonary arterial systolic pressure is 33 mmHg. Pericardium/Pleural There is no pericardial effusion. Inferior Vena Cava Normal inferior vena cava with >50% collapse upon inspiration consistent with normal right atrial pressure, 5 mmHg. Aorta The aortic root size at the sinus of Valsalva is normal. Left Ventricular Outflow Tract Name Value Normal LVOT 2D LVOT Diameter 2.0 cm LVOT Doppler LVOT Peak Velocity 160 cm/s LVOT Peak Gradient 10 mmHg LVOT Mean Gradient 5 mmHg LVOT VTI 26 cm LVOT VTI/AV VTI Ratio 0.6 LVOT Stroke Volume 87 ml LVOT CO 6.2 l/min LVOT CI 2.9 l/min/m2 Pulmonic Valve Name Value Normal RVOT Doppler RVOT Peak Velocity 112 cm/s RVOT Peak Gradient 5 mmHg PV Doppler PV Peak Velocity 119 cm/s PV Peak Gradient 6 mmHg Mitral Valve Name Value Normal MV Diastolic Function MV E Peak Velocity 77 cm/s MV A Peak Velocity 144 cm/s MV E/A 0.5 MV Decel Time (PW) 242 ms MV Annular TDI MV E/e' (Septal) 19.3 MV E/e' (Lateral) 21.4 MV E/e' (Average) 20.4 Tricuspid Valve Name Value Normal TV Regurgitation Doppler TR Peak Velocity 263 cm/s TR Peak Gradient 17 mmHg Estimated PAP/RSVP RA Pressure 5 mmHg <=5 PA Systolic Pressure 33 mmHg <36 RV Systolic Pressure 33 mmHg <36 TV Annular TDI TV Lateral Mirta s' Velocity 17.1 cm/s >=9.5 Aorta Name Value Normal Ascending Aorta Ao Root Diameter (MM) 3.9 cm Ao Root Diam Index (MM) 1.9 cm/m2 Aortic Valve Name Value Normal AV Doppler AV Peak Velocity 305 cm/s AV Peak Gradient 37 mmHg AV Mean Gradient 17 mmHg AV VTI 48 cm AV Area (Cont Eq VTI) 1.8 cm2 >=3.0 AV Area (Cont Eq Grant) 1.7 cm2 AV DI (Grant) 0.53 AV Regurgitation 2D LVOT Area 3.3 cm2 Ventricles Name Value Normal LV Dimensions 2D/MM IVS Diastolic Thickness (2D) 1.1 cm 0.6-1.0 LVID Diastole (2D) 4.5 cm 3.8-5.2 LVIW Diastolic Thickness (2D) 1.1 cm 0.6-0.9 LVID Systole (2D) 2.7 cm 2.2-3.5 LVOT Diameter 2.0 cm LV Mass (2D Cubed) 177.93 g 67.00-162.00 LV Mass Index (2D Cubed) 84 g/m2 43-95 Relative Wall Thickness (2D) 0.48 <=0.42 LV Fractional Shortening/Ejection Fraction 2D/MM LV Fractional Shortening (2D) 39 % 27-45 LV EF (2D Teichholz) 70 % LV Diastolic Volume (4C MOD) 61 ml LV EF (4C MOD) 69 % LV Diastolic Volume (2C MOD) 58 ml LV EF (2C MOD) 67 % LV Diastolic Volume (BP MOD) 60 ml 46-106 LV Diastolic Volume Index (BP MOD) 28 ml/m2 29-61 LV Systolic Volume (BP MOD) 20 ml 14-42 LV Systolic Volume Index (BP MOD) 9 ml/m2 8-24 LV EF (BP MOD) 67 % 54-74 LV Diastolic Length (4C) 6.9 cm LV Systolic Length (4C) 5.5 cm LV Stroke Volume (4C MOD) 42 ml Atria Name Value Normal LA Dimensions LA Dimension (MM) 4.8 cm 2.7-3.8 LA Volume (4C A-L) 94 ml LA Volume (BP A-L) 97 ml RA Dimensions RA Area (4C) 15.8 cm2 <=18.0 Report Signatures
== END 2024-12-05 12:38 | disposition home or self-care (01) ==
PROVIDERS: PCP Family Medicine; Visit Provider Internal Medicine Cardiovascular Disease
DX: R01.1 Cardiac murmur, unspecified (principal); I35.0 Nonrheumatic aortic (valve) stenosis
CPT/HCPCS: 93306